=== PATIENT | female | born 1965 | race Two or more races ===

== ENCOUNTER → 2024-10-28 | Outpatient (CLI) | payer MEDICAID ==
[~2024-10-28] VITALS: Ht 180.3 cm; Wt 97.1 kg
[2024-10-28] MEDS: REGADENOSON 0.4 MG/5 ML SYRG IV ONE ×2 (11:59→13:09)
--- NOTE | 2024-10-30 12:15 | DVHSR ---
APPROVED REPORT Exam: Nuclear Stress Test Indication: CHF Stress Tech: Patricia Corrigan Ht: 5 ft 11 in Wt: 214 lbs BSA: 2.17 m2 HR: 88 bpm BP: 137/77 mmHg BMI: 29.84 Rhythm: See Baseline Medical History Medical History: CHF, HTN, HLD, EF 35%, Pulmonary HTN, Peripheral Neuropathy, Home O2@ 4L/NC, DM, [employer] D, GERD, Current Smoker Allergies: Cipro, Naproxin, Tramadol Stress Test Details Stress Test: Pharmacologic stress testing performed using 0.4 mg of regadenoson per 5 mL given IV ov er 10 seconds. Reason for pharmacologic stress test: CHF. HR Resting HR: 88 bpmMax Heart Rate (APMHR): 162.782179 bpm Max HR Achieved: 95 bpmTarget HR (85% APMHR): 137.915842 bpm % of APMHR: 58.64 Recovery HR: 72 bpm BP Resting BP: 137/77 mmHg Recovery BP: 119/71 mmHg ECG Resting ECG: See Baseline Clinical Reason for Termination: Completed protocol Nurse Comments Uneventful Stress Test Stress ECG Conclusion lvef 27% severe dilated LV previous inferior infarct, no ischemia ecg shows SR, LVH , Left axis NM EXAM: Myocardial Perfusion REST/STRESS Imaging Protocol: Rest Tc-99m/Stress Tc-99m 1 day Resting Data Rest SPECT myocardial perfusion imaging was performed in supine position 60 minutes following the int ravenous injection of 13.3 mCi of Tc-99m Sestamibi. Time of rest injection: 1150 Date: 10/28/2024 Time of rest imagin Date: 10/28/2024 Administration Route: IV Administration Site: Left Arm Pharmacologic Stress Pharmacologic stress test was performed by injecting Regadenoson 0.4 mg IV push followed by the intra venous injection of 30.9 mCi of Tc-99m Sestamibi. Time of stress injection: 1310 Date: 10/28/2024 Time of stress imagin Date: 10/28/2024 Administration Route: IV Administration Site: Left Arm Gated Stress SPECT was performed 60 minutes after stress injection. The images were gated to evaluate regional wall motion and calculate left ventricular ejection fracti on. Stress only was performed in the Supine position. Nuclear Conclusion Nuclear Findings: negative for ischemia lvef 27% severe dilated LV previous inferior infarct, no ischemia ecg shows SR, LVH , Left axis
== END | disposition home or self-care (01) ==
LOC: XYW 11:23
PROVIDERS: ATTEND Specialist
DX: I11.0 Hypertensive heart disease with heart failure (principal); I50.9 Heart failure, unspecified; E78.5 Hyperlipidemia, unspecified; E11.42 Type 2 diabetes mellitus with diabetic polyneuropathy; J44.9 Chronic obstructive pulmonary disease, unspecified; K21.9 Gastro-esophageal reflux disease without esophagitis; I27.20 Pulmonary hypertension, unspecified; Z88.1 Allergy status to other antibiotic agents; Z88.5 Allergy status to narcotic agent
CPT/HCPCS: 78452; 93017; A9500; J2785